=== PATIENT | female | born 1930 | race Caucasian/White ===

== ENCOUNTER 2017-06-26 16:48 | Emergency (ER) | payer MEDICARE ==
--- NOTE | 2017-06-26 17:52 | EDM.PDOC ---
ED HPI GENERAL MEDICAL PROBLEM - General Chief Complaint: Abdominal Pain Stated Complaint: PT HAS STOMACH PAINS Time Seen by Provider: 06/26/17 17:49 Source of Information: Reports: Patient History Limitations: Reports: No Limitations - History of Present Illness INITIAL COMMENTS - FREE TEXT/NARRATIVE: HISTORY AND PHYSICAL: []86-year-old female presenting with abdominal pain since last night History of Present Illness: []Patient had been at the [employer] in [place] for the concert last night and she ate at the restaurant 2 hours after eating her stomach started hurting and continues to cause her discomfort today Denies any diarrhea denies any vomiting Review of Systems: As per history of present illness and below otherwise all systems reviewed and negative. Past medical history: As per history of present illness and as reviewed below otherwise noncontributory. Surgical history: As per history of present illness and as reviewed below otherwise noncontributory. Social history: No reported history of drug or alcohol abuse. Family history: As per history of present illness and as reviewed below otherwise noncontributory. Physical exam: Alert oriented female answering questions appropriately in full sentences without any shortness of breath. HEENT: Atraumatic, normocehpalic, pupils reactive, negative for conjunctival pallor or scleral icterus, mucous membranes moist, throat clear, neck supple, nontender, trachea midline. Lungs: Clear to auscultation, breath sounds equal bilaterally, chest non tender. Heart: S1S2, regular, negative for clicks, rubs, or JVD. Abdomen: Soft, mildly distended, mild tenderness. Negative for masses or hepatossplenmegaly. Negative for costovertebral tenderness. Pelvis: Stable nontender. Genitourinary: Deferred. Rectal: Deferred Extremities: Atraumatic, negative for cords or calf pain. Neurovascular unremarkable. Neuro: Awake, alert, oriented. Cranial nerves II through XII unremarkable. Cerebellum unremarkable. Motor and sensory unremarkable throughout. Exam nonfocal. Diagnostics: []cbc cmp ua blood cultures Therapeutics: [] Impression: [] Plan: [] Definitive disposition and diagnosis as appropriate pending reevaluation and review of above. Onset: Sudden Duration: Day(s):, Getting Worse Location: Reports: Abdomen Quality: Reports: Throbbing Severity: Moderate Improves with: Reports: None Worsens with: Reports: None Middle Abdomen Pain Score (Numeric/FACES): 6 - Related Data Allergies Allergy/AdvReac Type Severity Reaction Status Date / Time No Known Allergies Allergy Verified 06/26/17 17:19 Home Meds: Home Meds Aspirin 06/26/17 [History] B-Complex with Vitamin C [Super B Complex-Vitamin C] 06/26/17 [History] Fish Oil/Roe-3 Fatty Acids [Fish Oil] 06/26/17 [History] Losartan [Cozaar] 06/26/17 [History] Potassium Chloride 06/26/17 [History] Pravastatin [Pravachol] 06/26/17 [History] Triamterene [Dyrenium] 06/26/17 [History] amLODIPine [Norvasc] 06/26/17 [History] ED ROS GENERAL - Review of Systems Review Of Systems: ROS reveals no pertinent complaints other than HPI. ED EXAM, GI/ABD - Physical Exam Exam: See Below (see dictation) Course - Vital Signs Last Recorded V/S: Last Vital Signs Temp 36.2 C 06/27/17 01:10 Pulse 73 06/27/17 01:10 Resp 18 06/27/17 01:10 BP 138/64 06/27/17 01:10 Pulse Ox 96 06/27/17 01:10 - Orders/Labs/Meds Orders: Active Orders 24 hr Category Date Time Status EKG Documentation Completion [RC] STAT Care 06/26/17 19:43 Active EKG Documentation Completion [RC] STAT Care 06/26/17 21:09 Active Cole Catheter Insertion [Insert Urinary Catheter] [OM. Care 06/26/17 20:15 Ordered PC] Q24H Urinary Catheter Assessment [RC] ASDIRECTED Care 06/26/17 20:07 Active Abdomen 2V AP Flat Upright [CR] Stat Exams 06/26/17 17:54 Taken Chest 1V Frontal [CR] Stat Exams 06/26/17 19:43 Taken UA W/MICROSCOPIC [URIN] Stat Lab 06/26/17 18:30 Ordered Saline Lock Insert [OM.PC] Stat Oth 06/26/17 17:53 Ordered Saline Lock Insert [OM.PC] Stat Oth 06/26/17 19:43 Ordered Labs: Laboratory Tests 06/26/17 06/26/17 06/26/17 Range/Units 18:05 18:05 18:05 WBC 14.97 H (4.0-11.0) K/uL RBC 4.72 (4.30-5.90) M/uL Hgb 14.2 (12.0-16.0) g/dL Hct 41.4 (36.0-46.0) % MCV 87.7 (80.0-98.0) fL MCH 30.1 (27.0-32.0) pg MCHC 34.3 (31.0-37.0) g/dL RDW Std Deviation 44.9 (28.0-62.0) fl RDW Coeff of Wilma 14 (11.0-15.0) % Plt Count 268 (150-400) K/uL MPV 10.20 (7.40-12.00) fL Neut % (Auto) 82.6 H (48.0-80.0) % Lymph % (Auto) 12.8 L (16.0-40.0) % [place] % (Auto) 4.3 (0.0-15.0) % Eos % (Auto) 0.2 (0.0-7.0) % Baso % (Auto) 0.1 (0.0-1.5) % Neut # (Auto) 12.4 H (1.4-5.7) K/uL Lymph # (Auto) 1.9 (0.6-2.4) K/uL [place] # (Auto) 0.7 (0.0-0.8) K/uL Eos # (Auto) 0.0 (0.0-0.7) K/uL Baso # (Auto) 0.0 (0.0-0.1) K/uL Nucleated RBC % 0.0 /100WBC Nucleated RBCs # 0 K/uL INR 0.99 Sodium 133 L (136-145) mmol/L Potassium 3.4 L (3.5-5.1) mmol/L Chloride 97 L (98-107) mmol/L Carbon Dioxide 29.8 (21.0-32.0) mmol/L BUN 24 H (7.0-18.0) mg/dL Creatinine 1.1 H (0.6-1.0) mg/dL Est Cr Clr Drug Dosing 33.73 mL/min Estimated GFR (MDRD) 47.0 ml/min Glucose 141 H (74-106) mg/dL Calcium 10.9 H (8.5-10.1) mg/dL Total Bilirubin 0.6 (0.2-1.0) mg/dL AST 17 (15-37) IU/L ALT 20 (14-63) IU/L Alkaline Phosphatase 85 (46-116) U/L Troponin I 0.297 H* (0.000-0.056) ng/mL Total Protein 6.6 (6.4-8.2) g/dL Albumin 3.3 L (3.4-5.0) g/dL Globulin 3.3 (2.0-3.5) g/dL Albumin/Globulin Ratio 1.0 L (1.3-2.8) Lipase 86 (73-393) U/L Urine Color Urine Appearance Urine pH (5.0-8.0) Ur Specific Effie (1.001-1.035) Urine Protein (NEGATIVE) mg/dL Urine Glucose (UA) (NEGATIVE) mg/dL Urine Ketones (NEGATIVE) mg/dL Urine Occult Blood (NEGATIVE) Urine Nitrite (NEGATIVE) Urine Bilirubin (NEGATIVE) Urine Ictotest Urine Urobilinogen (<2.0) EU/dL Ur Leukocyte Esterase (NEGATIVE) Urine RBC (0-2/HPF) Urine WBC (0-5/HPF) Ur Epithelial Cells (NONE-FEW) Amorphous Sediment (NEGATIVE) Urine Bacteria (NEGATIVE) 06/26/17 06/26/17 Range/Units 18:30 21:00 WBC (4.0-11.0) K/uL RBC (4.30-5.90) M/uL Hgb (12.0-16.0) g/dL Hct (36.0-46.0) % MCV (80.0-98.0) fL MCH (27.0-32.0) pg MCHC (31.0-37.0) g/dL RDW Std Deviation (28.0-62.0) fl RDW Coeff of Wilma (11.0-15.0) % Plt Count (150-400) K/uL MPV (7.40-12.00) fL Neut % (Auto) (48.0-80.0) % Lymph % (Auto) (16.0-40.0) % [place] % (Auto) (0.0-15.0) % Eos % (Auto) (0.0-7.0) % Baso % (Auto) (0.0-1.5) % Neut # (Auto) (1.4-5.7) K/uL Lymph # (Auto) (0.6-2.4) K/uL [place] # (Auto) (0.0-0.8) K/uL Eos # (Auto) (0.0-0.7) K/uL Baso # (Auto) (0.0-0.1) K/uL Nucleated RBC % /100WBC Nucleated RBCs # K/uL INR Sodium (136-145) mmol/L Potassium (3.5-5.1) mmol/L Chloride (98-107) mmol/L Carbon Dioxide (21.0-32.0) mmol/L BUN (7.0-18.0) mg/dL Creatinine (0.6-1.0) mg/dL Est Cr Clr Drug Dosing mL/min Estimated GFR (MDRD) ml/min Glucose (74-106) mg/dL Calcium (8.5-10.1) mg/dL Total Bilirubin (0.2-1.0) mg/dL AST (15-37) IU/L ALT (14-63) IU/L Alkaline Phosphatase (46-116) U/L Troponin I 0.251 H* (0.000-0.056) ng/mL Total Protein (6.4-8.2) g/dL Albumin (3.4-5.0) g/dL Globulin (2.0-3.5) g/dL Albumin/Globulin Ratio (1.3-2.8) Lipase (73-393) U/L Urine Color YELLOW Urine Appearance HAZY Urine pH 6.0 (5.0-8.0) Ur Specific Effie 1.025 (1.001-1.035) Urine Protein 100 (NEGATIVE) mg/dL Urine Glucose (UA) NEGATIVE (NEGATIVE) mg/dL Urine Ketones TRACE H (NEGATIVE) mg/dL Urine Occult Blood NEGATIVE (NEGATIVE) Urine Nitrite NEGATIVE (NEGATIVE) Urine Bilirubin SMALL H (NEGATIVE) Urine Ictotest NEGATIVE Urine Urobilinogen 0.2 (<2.0) EU/dL Ur Leukocyte Esterase NEGATIVE (NEGATIVE) Urine RBC 0-2 (0-2/HPF) Urine WBC 1-3 (0-5/HPF) Ur Epithelial Cells FEW (NONE-FEW) Amorphous Sediment MODERATE (NEGATIVE) Urine Bacteria FEW (NEGATIVE) Meds: Medications Discontinued Medications Generic Name Dose Route Start Last Admin Trade Name Ken PRN Reason Stop Dose Admin Sodium Chloride 500 mls @ 999 mls/hr 06/26/17 18:30 Normal Saline IV STAT YANETH Sodium Chloride 1,000 mls @ 125 mls/hr 06/26/17 19:42 06/26/17 19:51 Normal Saline IV 06/27/17 03:41 125 mls/hr STAT ONE Administration Morphine Sulfate 2 mg 06/26/17 20:14 06/26/17 20:38 Morphine IVPUSH 06/26/17 20:15 2 mg ONETIME ONE Administration Ondansetron HCl 4 mg 06/26/17 20:14 06/26/17 20:34 Zofran IVPUSH 06/26/17 20:15 4 mg ONETIME ONE Administration Sodium Chloride 10 ml 06/26/17 17:54 06/26/17 19:52 Saline Flush FLUSH 10 ml ASDIRECTED PRN Administration Keep Vein Open Sodium Chloride 2.5 ml 06/26/17 17:54 06/26/17 19:52 Saline Flush FLUSH 2.5 ml ASDIRECTED PRN Administration Keep Vein Open Sodium Chloride 10 ml 06/26/17 19:42 Saline Flush FLUSH ASDIRECTED PRN Keep Vein Open Sodium Chloride 2.5 ml 06/26/17 19:42 Saline Flush FLUSH ASDIRECTED PRN Keep Vein Open Departure - Departure Time of Disposition: 01:00 Disposition: DC/Tfer to Acute Hospital 02 Condition: Good Clinical Impression: Small bowel obstruction Abdominal pain Qualifiers: Abdominal location: lower abdomen, unspecified Qualified Code(s): R10.30 - Lower abdominal pain, unspecified - Discharge Information Referrals: PCP,None [Primary Care Provider] - Forms: ED Department Discharge - My Orders Last 24 Hours: My Active Orders 06/26/17 17:53 Saline Lock Insert [OM.PC] Stat 06/26/17 17:54 Abdomen 2V AP Flat Upright [CR] Stat 06/26/17 18:30 UA W/MICROSCOPIC [URIN] Stat 06/26/17 19:43 EKG Documentation Completion [RC] STAT Chest 1V Frontal [CR] Stat Saline Lock Insert [OM.PC] Stat 06/26/17 20:07 Urinary Catheter Assessment [RC] ASDIRECTED 06/26/17 20:15 Cole Catheter Insertion [Insert Urinary Catheter] [OM.PC] Q24H 06/26/17 21:09 EKG Documentation Completion [RC] STAT - Assessment/Plan Last 24 Hours: My Active Orders 06/26/17 17:53 Saline Lock Insert [OM.PC] Stat 06/26/17 17:54 Abdomen 2V AP Flat Upright [CR] Stat 06/26/17 18:30 UA W/MICROSCOPIC [URIN] Stat 06/26/17 19:43 EKG Documentation Completion [RC] STAT Chest 1V Frontal [CR] Stat Saline Lock Insert [OM.PC] Stat 06/26/17 20:07 Urinary Catheter Assessment [RC] ASDIRECTED 06/26/17 20:15 Cole Catheter Insertion [Insert Urinary Catheter] [OM.PC] Q24H 06/26/17 21:09 EKG Documentation Completion [RC] STAT
[2017-06-26] MEDS ORDERED: Sodium Chloride 0.9% 2.5 ML Syringe FLUSH PRN ×2 (17:54→19:42)
[2017-06-26] MEDS ORDERED: Sodium Chloride 0.9% 10 ML Syringe FLUSH PRN ×2 (17:54→19:42)
[2017-06-26] MEDS ORDERED: Sodium Chloride 0.9% 500 ML IV SCH (18:30)
[2017-06-26] MEDS ORDERED: Sodium Chloride 0.9% 1,000 ML IV ONE (19:42)
[2017-06-26] MEDS ORDERED: Morphine 4 MG/ML Syringe IVPUSH ONE (20:14)
[2017-06-26] MEDS ORDERED: Ondansetron 4 MG/2 ML SDV IVPUSH ONE (20:14)
--- NOTE | 2017-06-27 16:42 | CR ---
EXAM DATE: 06/26/17 PATIENT'S AGE: 86 Patient: BARNEY BELL Facility: [place], [place] Site . Site : 1930 Study: XRay Abdomen [id number]/29/2018 7:13:26 PM Ordering Physician: Doctor Hurt Final Report: HISTORY: Pain. FINDINGS: Supine and erect radiographs of the abdomen demonstrates a scoliosis within the spine. Degenerative changes of the discs. Lung bases are free of infiltrate. No free air under the diaphragm. Small bowel loops are distended with 5.5 cm with air-fluid levels suspicious for small bowel obstruction. There is some stool seen within the rectum. Degenerative changes are seen within the hips. Surgical clips are seen within the right inguinal region. IMPRESSION: 1. Dilated small bowel with air-fluid levels suspicious for small bowel obstruction. 2. No free air under the diaphragm. Dictated by Trisha Martinez MD @ 06/26/2017 7:20:03 PM Dictated by: Trisha Martinez MD @ 06/26/2017 19:20:11 (Electronic Signature) Report Signed by Proxy. GELY
--- NOTE | 2017-06-27 16:51 | CR ---
EXAM DATE: 06/26/17 PATIENT'S AGE: 86 Patient: BARNEY BELL Facility: [place], [place] Site . Site : 1930 Study: XRay Chest [id number]/29/2018 8:24:37 PM Ordering Physician: Doctor Hurt Final Report: HISTORY: Shortness of breath. TECHNIQUE: One view of the chest. COMPARISON: No prior. FINDINGS: The cardiac size is upper limits of normal accounting for technique. There is no pulmonary vascular redistribution. No acute lung infiltrate or pulmonary edema. No pneumothorax or pleural effusion. Surgical clips within the neck. Degenerative changes of the spine. Narrowing of the acromiohumeral interval on the right likely indicates chronic rotator cuff tearing. IMPRESSION: No acute cardiopulmonary disease. Dictated by Carlos Eduardo Grijalva MD @ 06/26/2017 8:32:04 PM Dictated by: Carlos Eduardo Grijalva MD @ 06/26/2017 20:32:11 (Electronic Signature) Report Signed by Proxy. GELY
== END 2017-06-27 01:10 ==
LOC: MW.ED 16:48
DX: K56.609 Unspecified intestinal obstruction, unspecified as to partial versus complete obstruction (principal)
CPT/HCPCS: 36415; 71045; 74019; 80053; 81001; 83690; 84484; 85025; 85610; 93005; 96361; 96374; 96375; 99285; J2270; J2405; J7040